=== PATIENT | female | born 1980 | race Caucasian/White ===

== ENCOUNTER 2022-10-31 17:02 | Emergency (ER) | payer OTHER ==
[~2022-10-31] VITALS: Ht 162.6 cm; Wt 61.2 kg
[2022-10-31 18:02] VITALS: BP_SYST 133
[2022-10-31] MEDS ORDERED: SULF1TAB48 PO (20:15)
[2022-10-31] MEDS ORDERED: BENZ100C92 PO (20:15)
[2022-10-31] MEDS ORDERED: OFLO5DRO6 EACH EYE (20:15)
[2022-10-31 21:25] VITALS: BP_SYST 122
== END 2022-10-31 21:25 | disposition home or self-care (01) ==
LOC: SED 17:02
DX: J02.9 Acute pharyngitis, unspecified (principal); Z88.1 Allergy status to other antibiotic agents
CPT/HCPCS: 99283